=== PATIENT | male | born 1970 | race Caucasian/White ===

== ENCOUNTER 2019-11-19 09:31 | Emergency (ER) | payer BC ==
[2019-11-19 10:05] VITALS: BP 148/84
--- NOTE | 2019-11-19 10:27 | UC ---
Knee Pain HPI - HPI Summary HPI Summary: left knee pain x 1 day pain is severe , 8 out 10 , worse with walking, better with rest, elevation and ice snowboarding injury , twisting injury + pain / swelling - History of Current Complaint Chief Complaint: UCLowerExtremity Stated Complaint: LEFT KNEE INJURY(SKI ACCIDENT) Time Seen by Provider: 11/19/19 09:59 Hx Obtained From: Patient Onset/Duration: Sudden Onset, Lasting Days - 1, Still Present Severity Initially: Moderate Severity Currently: Moderate Pain Intensity: 8 Character: Aching Aggravating Factor(s): Movement, Weight Bearing Alleviating Factor(s): Rest, Cold Associated Signs And Symptoms: Positive: Swelling, Weakness. Negative: Redness , Bruising, Fever, Numbness, Tingling Able to Bear Weight: No - Allergies/Home Medications Allergies/Adverse Reactions: Allergies Allergy/AdvReac Type Severity Reaction Status Date / Time No Known Allergies Allergy Verified 11/19/19 10:05 Home Medications: Home Medications Naproxen Sodium [Aleve] 220 mg PO ONCE 11/19/19 [History Confirmed 11/19/19] PMH/Surg Hx/FS Hx/Imm Hx Previously Healthy: Yes - Surgical History Surgical History: Yes Surgery Procedure, Year, and Place: artificial disc neck. gall bladder - Family History Known Family History: Positive: Non-Contributory - Social History Alcohol Use: Occasionally Substance Use Type: None Smoking Status (MU): Current Every Day Smoker Amount Used/How Often: 1ppd Length of Time of Smoking/Using Tobacco: 30 yr Review of Systems All Other Systems Reviewed And Are Negative: Yes Is Patient Immunocompromised?: No Physical Exam Triage Information Reviewed: Yes Appearance: Well-Appearing, No Pain Distress, Well-Nourished Vital Signs: Initial Vital Signs Temp 98.7 F 11/19/19 09:59 Pulse 95 11/19/19 09:59 Resp 18 11/19/19 09:59 BP 148/84 11/19/19 09:59 Pulse Ox 96 11/19/19 09:59 Vital Signs Reviewed: Yes Eye Exam: Normal Eyes: Positive: Conjunctiva Clear ENT: Positive: Normal ENT inspection, Hearing grossly normal, Pharynx normal Neck exam: Normal Neck: Positive: Supple, Nontender Respiratory: Positive: Chest non-tender, Lungs clear, Normal breath sounds Cardiovascular: Positive: RRR, No Murmur, Pulses Normal Musculoskeletal: Positive: Other: - left knee: + swelling, + effusion , tenderness medial joint line, limited ROM on flexion, Diagnostics - Radiology No standard instances Radiology Interpretation Completed By: Radiologist - xray left knee: IMPRESSION : NO FRACTURE IDENTIFIED. Knee Pain Course/Dx - Differential Dx/Diagnosis Provider Diagnosis: Effusion, left knee Discharge ED - Sign-Out/Discharge Documenting (check all that apply): Patient Departure All imaging exams completed and their final reports reviewed: Yes - Discharge Plan Condition: Stable Disposition: HOME Patient Education Materials: Swollen Knee Joint (ED) Referrals: No Primary Care Phys,NOPCP [Primary Care Provider] - Bernabe Gavin MD [Medical Doctor] - Additional Instructions: ? internal knee injury cont. with rest, ice , elevation , referral to ortho for evaluation - Billing Disposition and Condition Condition: STABLE Disposition: Home
== END 2019-11-19 11:11 | disposition home or self-care (01) ==
LOC: UCCORT 09:31
DX: M25.462 Effusion, left knee (principal); M25.562 Pain in left knee; F17.210 Nicotine dependence, cigarettes, uncomplicated
CPT/HCPCS: 99202; G0463

== ENCOUNTER 2020-01-01 21:29 | Emergency (ER) | payer BC ==
[2020-01-01 21:39] VITALS: BP 138/90
--- NOTE | 2020-01-02 08:11 | UC ---
- Progress Note Progress Note: Dr. Ng called regarding scapular fracture. Chart reviewed: patient was referred to the ER. Course/Dx - Diagnoses Provider Diagnoses: Scapular fracture Discharge ED - Sign-Out/Discharge Documenting (check all that apply): Post-Discharge Follow Up All imaging exams completed and their final reports reviewed: Yes - Discharge Plan Condition: Stable Disposition: HOME-RECOMMEND TO ED Patient Education Materials: Scapular Fracture (ED) Referrals: No Primary Care Phys,NOPCP [Primary Care Provider] - Additional Instructions: The doctor that evaluated you today thinks that you need additional testing that can be completed the emergency department. It is recommended that you go directly to emergency department for further evaluation. This evaluation may include blood work or imaging. This testing will be directed and decided by the provider that evaluate you at the emergency department. If pain becomes worse, you feel lightheaded, you have uncontrolled vomiting, or you have any other concerns while you are being driven to emergency department as recommended to pullover and contact 911. - Billing Disposition and Condition Condition: STABLE Disposition: Home-Recommend to ED
--- NOTE | 2020-01-14 18:33 | UC ---
UC General HPI - History of Current Complaint Chief Complaint: UCUpperExtremity Stated Complaint: RIGHT SHOULDER INJURY Time Seen by Provider: 01/01/20 21:42 Pain Intensity: 8 - Allergy/Home Medications Allergies/Adverse Reactions: Allergies Allergy/AdvReac Type Severity Reaction Status Date / Time No Known Allergies Allergy Verified 01/01/20 21:40 Home Medications: Home Medications Acetaminophen [Tylenol Extra Strength] 1,000 mg PO DAILY 01/01/20 [History Confirmed 01/01/20] PMH/Surg Hx/FS Hx/Imm Hx - Surgical History Surgical History: Yes Surgery Procedure, Year, and Place: artificial disc neck. gall bladder - Family History Known Family History: Positive: Non-Contributory - Social History Alcohol Use: Occasionally Substance Use Type: None Smoking Status (MU): Current Every Day Smoker Amount Used/How Often: 1ppd Length of Time of Smoking/Using Tobacco: 30 yr Physical Exam Vital Signs: Initial Vital Signs Temp 98.3 F 01/01/20 21:37 Pulse 90 01/01/20 21:37 Resp 16 01/01/20 21:37 BP 138/90 01/01/20 21:37 Pulse Ox 99 01/01/20 21:37 Course/Dx - Diagnoses Provider Diagnosis: Scapular fracture Discharge ED - Sign-Out/Discharge All imaging exams completed and their final reports reviewed: Yes - Discharge Plan Condition: Stable Disposition: HOME-RECOMMEND TO ED Patient Education Materials: Scapular Fracture (ED) Referrals: No Primary Care Phys,NOPCP [Primary Care Provider] - Additional Instructions: The doctor that evaluated you today thinks that you need additional testing that can be completed the emergency department. It is recommended that you go directly to emergency department for further evaluation. This evaluation may include blood work or imaging. This testing will be directed and decided by the provider that evaluate you at the emergency department. If pain becomes worse, you feel lightheaded, you have uncontrolled vomiting, or you have any other concerns while you are being driven to emergency department as recommended to pullover and contact 911. - Billing Disposition and Condition Condition: STABLE Disposition: Home-Recommend to ED
== END 2020-01-01 22:06 | disposition home health service (06) ==
LOC: UCCORT 21:29
DX: S42.91XA Fracture of right shoulder girdle, part unspecified, initial encounter for closed fracture (principal); F17.210 Nicotine dependence, cigarettes, uncomplicated; X58.XXXA Exposure to other specified factors, initial encounter; Y92.9 Unspecified place or not applicable
CPT/HCPCS: 99213; G0463